=== PATIENT | male | born 1990 | race Two or more races ===

== ENCOUNTER 2018-04-06 22:42 | Emergency (ER) | payer SELFPAY ==
[~2018-04-06] VITALS: Ht 170.2 cm; Wt 90.7 kg
--- NOTE | 2018-04-06 22:50 | NUR ---
Pt came to emergency dept. complaining of R ankle pain that started yesterday after getting out of car. Pt states he does not have pain unless he puts pressure on ankle. Pt is AAXO4. Respirations are even and unlabored. Pending eval from ER MD. Family at bedside.
[2018-04-06] MEDS ORDERED: IBUPROFEN 600 MG TABLET PO ONE ×2 (23:10→23:30)
[2018-04-06 23:16] VITALS: BP 146/86
== END 2018-04-06 23:18 | disposition home or self-care (01) ==
LOC: ER 22:46
DX: S93.491A Sprain of other ligament of right ankle, initial encounter (principal); F17.200 Nicotine dependence, unspecified, uncomplicated; W23.0XXA Caught, crushed, jammed, or pinched between moving objects, initial encounter; Y93.89 Activity, other specified; Y92.810 Car as the place of occurrence of the external cause; Y99.8 Other external cause status
CPT/HCPCS: 99282; A4606; Z7610

== ENCOUNTER 2018-07-22 10:20 | Emergency (ER) | payer SELFPAY ==
[~2018-07-22] VITALS: Ht 170.2 cm; Wt 74.8 kg
[2018-07-22 10:50] VITALS: BP 133/88
== END 2018-07-22 11:13 | disposition home or self-care (01) ==
LOC: ER 10:21
DX: H60.92 Unspecified otitis externa, left ear (principal); F17.200 Nicotine dependence, unspecified, uncomplicated

== ENCOUNTER 2019-04-18 19:23 | Emergency (ER) | payer SELFPAY ==
[~2019-04-18] VITALS: Ht 167.6 cm; Wt 95.3 kg
[2019-04-18 19:23] VITALS: BP 166/117
[2019-04-18] MEDS ORDERED: ONDANSETRON 4 MG TAB.RAPDIS ONE (20:24)
[2019-04-18] MEDS ORDERED: HYDROCODONE/APAP 5/325MG 1 EACH TABLET ONE (20:24)
[2019-04-18] MEDS ORDERED: AMOX/CLAVULANATE 250 MG TABLET ONE (20:24)
--- NOTE | 2019-04-18 20:26 | NUR ---
PT WAS NOT IN THE ROOM FOR MEDICATION ADMINISTRATION. MEDICATION ALREADY PULLED.
[2019-04-18] MEDS ORDERED: HYDROCODONE/APAP 5/325MG 1 EACH TABLET PO ONE (20:30)
[2019-04-18] MEDS ORDERED: AMOXICILLIN TRIHYDRATE 250 MG CAPSULE PO ONE (20:30)
[2019-04-18] MEDS ORDERED: ONDANSETRON 4 MG TAB.RAPDIS SL ONE (20:30)
--- NOTE | 2019-04-18 20:30 | NUR ---
MADE AWARE THAT PT WAS NOT IN ROOM.
== END 2019-04-18 20:32 | disposition left against medical advice (07) ==
LOC: ER 19:25
DX: K08.89 Other specified disorders of teeth and supporting structures (principal); R51 Headache; Z60.2 Problems related to living alone
CPT/HCPCS: Q0162